=== PATIENT | male | born 1970 | race Two or more races ===

== ENCOUNTER 2018-12-14 17:52 | Outpatient (CLI) | payer OTHER ==
[~2018-12-14 17:52] MED LIST: CATAFLAM50 MG PO; FLOMAX PO; TORADOL10 MG PO
== END 2018-12-14 18:03 | disposition home or self-care (01) ==
LOC: LAB 17:52
DX: R97.20 Elevated prostate specific antigen [PSA] (principal)

== ENCOUNTER → 2019-04-19 | Outpatient (CLI) | payer OTHER | END | disposition home or self-care (01) | LOC: SONOGRAMA 07:23 | DX: R97.20 Elevated prostate specific antigen [PSA] (principal) ==

== ENCOUNTER 2023-04-12 10:21 | Outpatient (CLI) | payer OTHER | END 2023-04-12 10:23 | disposition home or self-care (01) | LOC: SONOGRAMA 10:21 | PROVIDERS: ATTEND Pathology Anatomic Pathology & Clinical Pathology | DX: D34 Benign neoplasm of thyroid gland (principal); E04.2 Nontoxic multinodular goiter ==

== ENCOUNTER 2023-06-17 02:06 | Emergency (ER) | payer OTHER ==
[~2023-06-17] VITALS: Ht 172.7 cm; Wt 90.7 kg
[2023-06-17] MEDS ORDERED: TOPROL XL25 M1 PO (02:36)
[2023-06-17] MEDS ORDERED: GLUMETZA500 MG PO (02:37)
[2023-06-17] MEDS ORDERED: LISINOPRIL20 MG PO (02:37)
[2023-06-17] MEDS ORDERED: ATORVASTATIN CA80 MG PO (02:39)
[2023-06-17] MEDS ORDERED: CHILDREN'S ASPI81 MG PO (02:39)
[2023-06-17] MEDS ORDERED: PROMETHAZINE HCL 50 MG/ML AMPUL IM STA (03:54)
[2023-06-17] MEDS ORDERED: KETOROLAC TROMETHAMINE 30 MG VIAL IV STA (03:54)
[2023-06-17] MEDS ORDERED: TAMSULOSIN HCL 0.4 MG CAP PO STA (03:54)
[2023-06-17] MEDS ORDERED: SODIUM CHLORIDE 0.45 % 1,000 ML IV ONE (04:00)
[2023-06-17 04:38] LABS: HEMATOCRIT 42.3 % (39.0-48.0); HEMOGLOBIN 14.3 g/dL (13-16.00); MEAN CELL VOLUME 84.7 fL (80.0-100.00); MEAN CORPUSCULAR HEMOGLOBIN 28.6 pg (27.00-32.0); MEAN CORPUSCULAR HGB CONC 33.8 g/dl (32.0-36.0); PLATELET COUNT 203 K/uL (150-450); RED BLOOD COUNT 4.99 M/uL (4.00-6.00); RED CELL DISTRIBUTION WIDTH 13.8 % (11.5-14.5)
[2023-06-17 04:43] LABS: PH,URINE 5.5 (5.0-8.0); URINE APPEARANCE Clear; URINE BILIRRUBIN Negative (NEGATIVE); URINE BLOOD Large; URINE COLOR Yellow; URINE LEUKOCYTE Small; URINE NITRATE Negative; URINE PROTEIN Trace (NEGATIVE); URINE UROBILINOGEN 0.2 E.U./dl
[2023-06-17 04:44] LABS: URINE BACTERIA 45.3 uL (0.0-1933); URINE EPITHELIAL CELLS 11.8 uL (0.0-38.8); URINE RBC 188.9 uL (0.0-20.8); URINE WBC 81.1 uL (0.0-23.2)
[2023-06-17 04:53] LABS: CALCIUM 8.6 mg/dL (8.5-10.1); GFR 79.09; POTASSIUM 3.88 mEq/L (3.5-5.1)
[2023-06-17 05:41] LABS: URINE GLUCOSE 250 MG/DL (NEGATIVE)
[2023-06-17] MEDS ORDERED: KETO10TA2 PO (08:57)
[2023-06-17] MEDS ORDERED: TAMS0.4C PO (08:57)
== END 2023-06-17 13:23 ==
LOC: ER 02:07
PROVIDERS: General Practice
DX: N20.0 Calculus of kidney (principal); E11.9 Type 2 diabetes mellitus without complications; Z79.84 Long term (current) use of oral hypoglycemic drugs; I10 Essential (primary) hypertension; N20.1 Calculus of ureter; N40.0 Benign prostatic hyperplasia without lower urinary tract symptoms

== ENCOUNTER 2024-06-21 09:32 | Emergency (ER) | payer OTHER ==
[~2024-06-21] VITALS: Ht 172.7 cm; Wt 907.2 kg
[~2024-06-21 09:32] MED LIST changes: +ATORVASTATIN CA80 MG PO; +CHILDREN'S ASPI81 MG PO; +GLUMETZA500 MG PO; +KETO10TA2 PO; +LISINOPRIL20 MG PO; +TAMS0.4C PO; +TOPROL XL25 M1 PO
[2024-06-21 09:40] VITALS: BP 135/84; O2SAT 98
[2024-06-21] MEDS ORDERED: TAMSULOSIN HCL 0.4 MG CAP PO ONE ×2 (10:00→10:07)
[2024-06-21] MEDS ORDERED: ONDANSETRON HCL 2 MG/ML VIAL IV ONE (10:00)
[2024-06-21] MEDS ORDERED: KETOROLAC TROMETHAMINE 30 MG VIAL IV ONE (10:00)
[2024-06-21] MEDS ORDERED: 0.9 % SODIUM CHLORIDE 1,000 ML IV SCH (10:00)
[2024-06-21] MEDS ORDERED: KETOROLAC TROMETHAMINE 30 MG VIAL ONE (10:06)
[2024-06-21] MEDS ORDERED: ONDANSETRON HCL 2 MG/ML VIAL ONE (10:07)
[2024-06-21 10:44] LABS: HEMATOCRIT 48.7 % (39.0-48.0); HEMOGLOBIN 16.4 g/dL (13-16.00); MEAN CELL VOLUME 87.1 fL (80.0-100.00); MEAN CORPUSCULAR HEMOGLOBIN 29.4 pg (27.00-32.0); MEAN CORPUSCULAR HGB CONC 33.8 g/dl (32.0-36.0); PLATELET COUNT 253 K/uL (150-450); RED BLOOD COUNT 5.59 M/uL (4.00-6.00); RED CELL DISTRIBUTION WIDTH 13.6 % (11.5-14.5)
[2024-06-21 11:07] LABS: BILIRUBIN TOTAL 0.79 mg/dL (0.3-1.2); CALCIUM 9.1 mg/dL (8.5-10.1); CREATININE SERUM 1.15 mg/dL (0.70-1.30); GFR 67.04; GLOBULINA 3.6 G/DL (2.4-3.5); POTASSIUM 3.95 mEq/L (3.5-5.1); TOTAL PROTEIN 7.6 gm/dL (6.4-8.2)
[2024-06-21 11:33] LABS: PH,URINE 5.5 (5.0-8.0); URINE APPEARANCE Cloudy; URINE BILIRRUBIN Negative (NEGATIVE); URINE BLOOD Large; URINE COLOR Yellow; URINE KETONE Trace (NEGATIVE); URINE LEUKOCYTE Trace; URINE NITRATE Negative; URINE PROTEIN 30 (NEGATIVE); URINE UROBILINOGEN 0.2 E.U./dl
[2024-06-21 11:40] LABS: URINE BACTERIA 31.8 uL (0.0-1933); URINE EPITHELIAL CELLS 5.2 uL (0.0-38.8); URINE RBC 1451.1 uL (0.0-20.8); URINE WBC 20.7 uL (0.0-23.2)
[2024-06-21 11:53] LABS: URINE CAST 0.73 uL (0.0-1.40); URINE GLUCOSE 250 MG/DL (NEGATIVE)
[2024-06-21] MEDS ORDERED: MORPHINE SULFATE 4 MG/ML VIAL IV ONE (13:30)
[2024-06-21] MEDS ORDERED: CEFTRIAXONE SODIUM 1,000 MG VIAL IV ONE (13:30)
[2024-06-21] MEDS ORDERED: CEFTRIAXONE SODIUM 1,000 MG VIAL ONE (13:44)
== END 2024-06-21 14:00 | disposition home or self-care (01) ==
LOC: ER 09:35
PROVIDERS: General Practice
DX: N20.2 Calculus of kidney with calculus of ureter (principal); N40.0 Benign prostatic hyperplasia without lower urinary tract symptoms; I10 Essential (primary) hypertension; E11.9 Type 2 diabetes mellitus without complications; Z79.84 Long term (current) use of oral hypoglycemic drugs